=== PATIENT | female | born 1985 | race American Indian/Alaskan Native ===

== ENCOUNTER 2017-11-01 11:15 | Emergency (ER) | payer OTHER ==
[2017-11-01 11:16] VITALS: BMI 34.9
[2017-11-01] MEDS ORDERED: Sodium Chloride 0.9% 1,000 ML IV STA (11:37)
[2017-11-01] MEDS ORDERED: Iohexol 350 MG/100 ML VIAL ONE (11:43)
--- NOTE | 2017-11-01 11:49 | ED PDOC ---
Arrival/HPI - General Chief Complaint: Abdominal Pain Time Seen by Provider: 11/01/17 11:27 Historian: Patient - History of Present Illness Narrative History of Present Illness (Text): 11/01/17 11:46 Nicko Alicea is a 32 year old female, whose past medical histroy includes Aplastic anemia, who presents to the emergency department complaining of nausea, vomiting, and abdominal pain for 3 days. Patient describes the abdominal pain as a "crampy" periumbilical pain. Patient denies any fever, chills, chest pain, shortness of breath, diarrhea, back pain, neck pain, headache, dizziness or any other complaints. Time/Duration: < week (3 days) Symptom Onset: Gradual Symptom Course: Unchanged Activities at Onset: Light Context: Home Past Medical History - Provider Review Nursing Documentation Reviewed: Yes - Past History Past History: No Previous - Infectious Disease Hx of Infectious Diseases: None - Tetanus Immunization Tetanus Immunization: Unknown - Cardiac Hx Hypertension: Yes - Pulmonary Hx Respiratory Disorders: No - Neurological Hx Neurological Disorder: No - HEENT Hx HEENT Disorder: No - Renal Hx Renal Disorder: No - Endocrine/Metabolic Hx Endocrine Disorders: No - Hematological/Oncological Hx Blood Disorders: Yes Hx Anemia: Yes (Aplastic) Hx Blood Transfusions: Yes - Integumentary Hx Dermatological Disorder: No - Musculoskeletal/Rheumatological Hx Musculoskeletal Disorders: No - Gastrointestinal Hx Gastrointestinal Disorders: No - Genitourinary/Gynecological Hx Genitourinary Disorders: Yes Other/Comment: ectopic , still born - Psychiatric Hx Psychophysiologic Disorder: No Hx Substance Use: No - Past Surgical History Past Surgical History: No Previous - Surgical History Hx Vascular Access Device: Yes (Portacath) Other/Comment: Bone Marrow transplant in 1989 - Anesthesia Hx Anesthesia: Yes Hx Anesthesia Reactions: No - Suicidal Assessment Feels Threatened In Home Enviroment: No Family/Social History - Physician Review Nursing Documentation Reviewed: Yes Family/Social History: Unknown Family HX Smoking Status: Light Smoker < 10 Cigarettes Daily Hx Alcohol Use: No Hx Substance Use: No Hx Substance Use Treatment: No Allergies/Home Meds Allergies/Adverse Reactions: Allergies shellfish derived Allergy (Severe, Verified 11/01/17 11:25) SWELLING Home Medications: Home Meds Medication Instructions Recorded Confirmed Ferrous Sulfate [Iron] 325 mg PO DAILY 10/08/16 11/01/17 Review of Systems - Physician Review All systems were reviewed & negative as marked: Yes - Review of Systems Constitutional: Normal Eyes: Normal ENT: Normal Respiratory: Normal. absent: SOB, Cough Cardiovascular: Normal. absent: Chest Pain Gastrointestinal: Abdominal Pain, Nausea, Vomiting Genitourinary Female: Normal. absent: Dysuria, Frequency, Hematuria, Urine Output Changes, Vaginal Bleeding, Vaginal Discharge Musculoskeletal: Normal. absent: Back Pain, Neck Pain Skin: Normal. absent: Rash Neurological: Normal. absent: Headache, Dizziness Endocrine: Normal Hemo/Lymphatic: Normal Psychiatric: Normal Physical Exam - Physical Exam Narrative Physical Exam (Text): 11/01/17 11:50 Constitutional: No acute distress. Head: Normocephalic. Atraumatic. Eyes: PERRL. ENT: Moist mucous membranes. Neck: Supple. Cardiovascular: Regular rate. Chest: No tenderness. Respiratory: Clear to auscultation bilaterally. GI: Soft. Nontender. Nondistended. Back: No CVA tenderness. Musculoskeletal: No tenderness or swelling of extremities. Skin: No rash. Neurologic: Alert, no focal deficit. Vital Signs Temp Pulse Resp BP Pulse Ox 11/01/17 15:53 98.1 F 82 18 138/86 98 11/01/17 14:43 98.6 F 76 18 158/56 H 99 Medical Decision Making ED Course and Treatment: 11/01/17 11:50 Impression: 32 year old female presents to the emergency department complaining of nausea, vomiting, and abdominal pain. Plan: -- Cat Scan Abd/Pelvis -- Labs -- Urinalysis -- Lipase -- Magnesium -- Phosphorous -- POC Urine Test -- Toradol -- Zofran -- Sodium Chloride -- Reassess and disposition Prior Visits: Notes and results from previous visits were reviewed. Patient was last seen in the emergency department on 10/13/2016 for first trimester bleeding. Patient was discharged home. Progress Notes: 11/01/17 14:33 CT Abd/Pelvis reviewed, shows: LOWER THORAX: Unremarkable. LIVER: Unremarkable. No gross lesion or ductal dilatation. GALLBLADDER AND BILE DUCTS: Unremarkable. PANCREAS: Unremarkable. No gross lesion or ductal dilatation. SPLEEN: Unremarkable. ADRENALS: Unremarkable. No mass. KIDNEYS AND URETERS: Unremarkable. No hydronephrosis. No solid mass. VASCULATURE: Unremarkable. No aortic aneurysm. BOWEL: Unremarkable. No obstruction. No gross mural thickening. APPENDIX: Normal appendix. PERITONEUM: Unremarkable. No free fluid. No free air. LYMPH NODES: Unremarkable. No enlarged lymph nodes. BLADDER: Unremarkable. REPRODUCTIVE: Rim enhancing cysts are seen in the right adnexa. There is also fluid in the cul-de-sac. Findings consistent with recent ovarian cyst rupture. BONES: No acute fracture. OTHER FINDINGS: None. IMPRESSION: Right ovarian cysts with fluid in the cul-de-sac consistent with recent cyst rupture. No evidence of appendicitis 11/01/17 15:51 On reevaluation, patient is tolerating po. Her abdomen continues to be soft NT/ ND. She has no urinary complaints or complaints of vaginal discharge. She reports that she feels better. Will dc to follow-up with OB and GI - Lab Interpretations Lab Results: 11/01/17 12:04 11/01/17 12:04 Lab Results 11/01/17 12:04: Sodium 141, Potassium 3.3 L, Chloride 103, Carbon Dioxide 29, Anion Gap 12, BUN 16, Creatinine 0.7, Est GFR ( Amer) > 60, Est GFR (Non- Af Amer) > 60, Random Glucose 88, Calcium 9.7, Phosphorus 3.8, Magnesium 1.7, Total Bilirubin 1.9 H, AST 19, ALT 30, Alkaline Phosphatase 59, Total Protein 7.5, Albumin 4.1, Globulin 3.4, Albumin/Globulin Ratio 1.2, Lipase 68 11/01/17 12:04: WBC 10.2, RBC 4.14, Hgb 13.8, Hct 40.4, MCV 97.6, MCH 33.3, MCHC 34.2, RDW 14.7 H, Plt Count 191, MPV 9.3, Gran % 82.5 H, Lymph % (Auto) 12.7 L, [place] % (Auto) 4.5, Eos % (Auto) 0.2 L, Baso % (Auto) 0.1, Gran # 8.37 H , Lymph # (Auto) 1.3, [place] # (Auto) 0.5, Eos # (Auto) 0.0, Baso # (Auto) 0.01 11/01/17 11:50: Urine Color Yellow, Urine Appearance Clear, Urine pH 5.5, Ur Specific [place] 1.025, Urine Protein Negative, Urine Glucose (UA) Negative, Urine Ketones Negative, Urine Blood Negative, Urine Nitrate Negative, Urine Bilirubin Negative, Urine Urobilinogen 0.2, Ur Leukocyte Esterase Trace H, Urine RBC 0 - 2, Urine WBC 2 - 5, Ur Epithelial Cells 3 - 4, Amorphous Sediment Few, Urine Bacteria Many, Urine Other Uyeast - RAD Interpretation Radiology Orders: 11/01/17 11:38 ABD & PELVIS IV CONTRAST ONLY [CT] Stat - Medication Orders Current Medication Orders: Discontinued Medications Acetaminophen (Tylenol 325mg Tab) 975 mg PO STAT STA Stop: 11/01/17 15:00 Last Admin: 11/01/17 15:31 Dose: 975 mg MAR Pain/Vitals Document 11/01/17 15:31 [facility] [place]Rec[place] 11/01/17 15:32 [facility] [place] [id number][place] Pain Reassessment Is This A Pain ReAssessment? Yes Sleep Is patient sleeping during reassessment? No Presence of Pain Presence of Pain Yes Pain Scale Used Pain Scale Used Numeric Location Pain Location Body Site Abdomen Description Intermittent Intensity 3 Scale Used Numeric Al Hydrox/Mg Hydrox/Simethicone (Maalox Plus 30 Ml) 30 ml PO STAT STA Stop: 11/01/17 15:00 Last Admin: 11/01/17 15:32 Dose: 30 ml Famotidine (Pepcid) 20 mg IVP STAT STA Stop: 11/01/17 15:00 Last Admin: 11/01/17 15:31 Dose: 20 mg IVP Administration Document 11/01/17 15:31 [facility] [place]Rec: 11/01/17 15:31 [facility] [id number][place] Charges for Administration # of IVP Administrations 1 Sodium Chloride (Sodium Chloride 0.9%) 1,000 mls @ 1,000 mls/hr IV .Q1H STA Stop: 11/01/17 12:36 Last Admin: 11/01/17 12:05 Dose: 1,000 mls/hr eMAR Start Stop Document 11/01/17 12:05 [facility] [place]Rec: 11/01/17 12:06 [facility] [id number]) Intravenous Solution Start Date 11/01/17 Start Time 12:06 End Date 11/01/17 End time 13:07 Total Infusion Time 61 Ketorolac Tromethamine (Toradol) 30 mg IVP STAT STA Stop: 11/01/17 11:38 Last Admin: 11/01/17 12:06 Dose: 30 mg MAR Pain Assessment Document 11/01/17 12:06 [facility] (Rec: 11/01/17 12:06 [facility] [id number]) Pain Reassessment Is this a pain reassessment? No Sleep Is patient sleeping during reassessment? No Presence of Pain Presence of Pain Yes Pain Scale Used Pain Scale Used Numeric Location Pain Location Body Site Abdomen Description Intensity of Pain at present 5 IVP Administration Document 11/01/17 12:06 [facility] (Rec: 11/01/17 12:06 [facility] [id number]) Charges for Administration # of IVP Administrations 1 Ondansetron HCl (Zofran Inj) 4 mg IVP STAT STA Stop: 11/01/17 11:38 Last Admin: 11/01/17 12:06 Dose: 4 mg IVP Administration Document 11/01/17 12:06 [facility] (Rec: 11/01/17 12:06 [facility] [id number]) Charges for Administration # of IVP Administrations 1 - Scribe Statement The provider has reviewed the documentation as recorded by the Scribrachel Hoover All medical record entries made by the Scribe were at my direction and personally dictated by me. I have reviewed the chart and agree that the record accurately reflects my personal performance of the history, physical exam, medical decision making, and the department course for this patient. I have also personally directed, reviewed, and agree with the discharge instructions and disposition. Disposition/Present on Arrival - Present on Arrival Any Indicators Present on Arrival: No History of DVT/PE: No History of Uncontrolled Diabetes: No Urinary Catheter: No History of Decub. Ulcer: No History Surgical Site Infection Following: None - Disposition Have Diagnosis and Disposition been Completed?: Yes Diagnosis: Ovarian cyst rupture, Ovarian cyst, Gastroenteritis Disposition: HOME/ ROUTINE Disposition Time: 14:27 Patient Plan: Discharge Condition: GOOD Discharge Instructions (ExitCare): Ovarian Cysts Additional Instructions: Follow-up with PMD within 2 days. Return to ED if condition worsens. Follow- up with turn down worker for ovarian cysts. Follow-up with GI for further evaluation. Referrals: Ric Chiu DO [Staff Provider] - Follow up with primary Josue Sanchez MD [Staff Provider] - Follow up with primary Forms: [email or web address] (Indonesian)
[2017-11-01 12:08] LABS: BASO # 0.01 K/mm3 (0.0-2.0); BASO % 0.1 % (0.0-3.0); EOS % 0.2 % (1.5-5.0); GRAN # 8.37 (1.4-6.5); GRAN % 82.5 % (50.0-68.0); HEMOGLOBIN 13.8 g/dL (12.0-16.0); LYMPH # 1.3 (1.2-3.4); LYMPH % 12.7 % (22.0-35.0); MEAN CELL VOLUME 97.6 fl (80.0-105.0); MEAN CORPUSCULAR HEMOGLOBIN 33.3 pg (25.0-35.0); MEAN CORPUSCULAR HGB CONC 34.2 g/dl (31.0-37.0); MEAN PLATELET VOLUME 9.3 fl (7.0-11.0); MONO # 0.5 (0.1-0.6); MONO % 4.5 % (1.0-6.0); RBC 4.14 10^6/uL (3.5-6.1); RED CELL DISTRIBUTION WIDTH 14.7 % (11.5-14.5); WHITE BLOOD COUNT 10.2 10^3/ul (4.5-11.0)
[2017-11-01 12:16] LABS: PH,URINE 5.5 (4.7-8.0); URINE BILIRUBIN NEGATIVE (NEGATIVE); URINE BLOOD NEGATIVE (NEGATIVE); URINE GLUCOSE (UA) NEGATIVE (NEGATIVE); URINE LEUKOCYTE ESTERASE TRACE Leu/uL (NEGATIVE); URINE PROTEIN NEGATIVE mg/dL (<30 mg/dL); URINE UROBILINOGEN 0.2 E.U./dL (<1 E.U./dL)
[2017-11-01 12:17] LABS: URINE APPEARANCE CLEAR (CLEAR); URINE COLOR YELLOW (YELLOW)
[2017-11-01 12:18] LABS: ALB/GLOB RATIO 1.2 (1.1-1.8); ALBUMIN 4.1 g/dL (3.0-4.8); ALT/SGPT 30 U/L (7-56); AST/SGOT 19 U/L (14-36); BLOOD UREA NITROGEN 16 mg/dL (7-21); CALCIUM 9.7 mg/dL (8.4-10.5); GFR AFRICAN-AMERICAN > 60; GFR NON-AFRICAN AMERICAN > 60; LIPASE 68 U/L (23-300)
[2017-11-01 12:25] LABS: URINE AMORPHOUS SEDIMENT FEW; URINE BACTERIA MANY (NEG); URINE RBC 0 - 2 /hpf (0-2)
--- NOTE | 2017-11-01 14:23 | CT ---
PROCEDURE: CT Abdomen and Pelvis with contrast HISTORY: periumbilical abdominal x 4 days COMPARISON: None. TECHNIQUE: Contrast dose: 100 cc of Omni 350 Radiation dose: Total exam DLP = 403 mGy-cm. This CT exam was performed using one or more of the following dose reduction techniques: Automated exposure control, adjustment of the mA and/or kV according to patient size, and/or use of iterative reconstruction technique. FINDINGS: LOWER THORAX: Unremarkable. LIVER: Unremarkable. No gross lesion or ductal dilatation. GALLBLADDER AND BILE DUCTS: Unremarkable. PANCREAS: Unremarkable. No gross lesion or ductal dilatation. SPLEEN: Unremarkable. ADRENALS: Unremarkable. No mass. KIDNEYS AND URETERS: Unremarkable. No hydronephrosis. No solid mass. VASCULATURE: Unremarkable. No aortic aneurysm. BOWEL: Unremarkable. No obstruction. No gross mural thickening. APPENDIX: Normal appendix. PERITONEUM: Unremarkable. No free fluid. No free air. LYMPH NODES: Unremarkable. No enlarged lymph nodes. BLADDER: Unremarkable. REPRODUCTIVE: Rim enhancing cysts are seen in the right adnexa. There is also fluid in the cul-de-sac. Findings consistent with recent ovarian cyst rupture. BONES: No acute fracture. OTHER FINDINGS: None. IMPRESSION: Right ovarian cysts with fluid in the cul-de-sac consistent with recent cyst rupture. No evidence of appendicitis
[2017-11-01 14:43] VITALS: RESP 18
[2017-11-01] MEDS ORDERED: Alum-Mag Hydrox-Simethicone Susp (30 mL) PO STA (14:59)
[2017-11-01 15:54] VITALS: BP 138/86; PULSE 82; TEMP 98.1; O2SAT 98
== END 2017-11-01 15:58 | disposition home or self-care (01) ==
LOC: ED 11:15
DX: K52.9 Noninfective gastroenteritis and colitis, unspecified (principal); N83.201 Unspecified ovarian cyst, right side; I10 Essential (primary) hypertension; D64.9 Anemia, unspecified; F17.210 Nicotine dependence, cigarettes, uncomplicated
CPT/HCPCS: 74177; 80053; 81001; 83690; 83735; 84100; 85025; 87086; 96361; 96374; 96375; 99284; J1885; J2405; J7040; Q9967